=== PATIENT | male | born 1955 | race Caucasian/White ===

== ENCOUNTER → 2021-04-03 | Outpatient (CLI) | payer OTHER ==
[~2021-04-03] MED LIST: AMIT10; ATOR10; ESCI10; LEVFLO500 PO; OMEP20ER; TAMS.4ER PO
== END ==
LOC: LAB 16:10 → LAB SHORT 16:10
DX: R30.0 Dysuria (principal); Z88.0 Allergy status to penicillin
CPT/HCPCS: 87077; 87086; 87186

== ENCOUNTER 2022-09-04 08:56 | Day surgery (SDC) | payer OTHER ==
[~2022-09-04] VITALS: Ht 182.9 cm; Wt 114.6 kg
[~2022-09-04 08:56] MED LIST changes: +AMLO10 PO; +Celexa20 MG PO; +LOSARTAN POTAS100 M1 PO; +PRAVASTATIN SOD40 MG PO
== END 2022-09-04 10:51 | disposition home or self-care (01) ==
LOC: ORSCSDS 08:56
PROVIDERS: Student in an Organized Health Care Education/Training Program
PROC: 08DJ3ZZ Extraction of Right Lens, Percutaneous Approach (ICD-10-PCS; principal; 2022-09-04 10:30)
DX: H25.13 Age-related nuclear cataract, bilateral (principal); I10 Essential (primary) hypertension; G47.33 Obstructive sleep apnea (adult) (pediatric); E66.9 Obesity, unspecified; Z68.34 Body mass index [BMI] 34.0-34.9, adult; Z79.899 Other long term (current) drug therapy
CPT/HCPCS: J2001; J2250; J3010; J7040; V2632

== ENCOUNTER 2024-09-01 13:14 | Emergency (ER) | payer MEDICARE ==
[~2024-09-01] VITALS: Ht 180.3 cm; Wt 108.9 kg
[2024-09-01 13:41] VITALS: BP 154/108
[2024-09-01] MEDS ORDERED: CLIN300 PO (14:47)
[2024-09-01 15:36] LABS: Adenovirus Not Detected (NOT DETECT); Coronavirus 229E Not Detected (NOT DETECT); Coronavirus HKU1 Not Detected (NOT DETECT); Coronavirus NL63 Not Detected (NOT DETECT); Coronavirus OC43 Not Detected (NOT DETECT); Human Metapneumovirus Not Detected (NOT DETECT); Human Rhinovirus/Enterovirus Not Detected (NOT DETECT); Influenza A/2009-H1 Not Detected (NOT DETECT); Influenza A/H1 Not Detected (NOT DETECT); Influenza A/H3 Not Detected (NOT DETECT); Influenza B Not Detected (NOT DETECT); Parainfluenza Virus 1 Not Detected (NOT DETECT); SARS-Cov-2 (COVID-19), BioFire Not Detected (NOT DETECT)
[2024-09-01 15:37] LABS: Bordetella pertussis Not Detected (NOT DETECT); Chlamydophila pneumoniae Not Detected (NOT DETECT); Mycoplasma pneumoniae Not Detected (NOT DETECT); Parainfluenza Virus 2 Not Detected (NOT DETECT); Parainfluenza Virus 3 Not Detected (NOT DETECT); Parainfluenza Virus 4 Not Detected (NOT DETECT); Respiratory Syncytial Virus Not Detected (NOT DETECT)
== END 2024-09-01 15:00 | disposition home or self-care (01) ==
LOC: ER 13:14
PROVIDERS: Student in an Organized Health Care Education/Training Program
DX: I10 Essential (primary) hypertension (principal); J32.9 Chronic sinusitis, unspecified; K21.9 Gastro-esophageal reflux disease without esophagitis; Z88.0 Allergy status to penicillin; Z79.899 Other long term (current) drug therapy
CPT/HCPCS: 0202U; 93005; 93010; 99283-25

== ENCOUNTER 2025-01-04 09:15 | Day surgery (SDC) | payer OTHER ==
[~2025-01-04] VITALS: Ht 182.9 cm; Wt 107.4 kg
[~2025-01-04 09:15] MED LIST changes: +CLIN300 PO; +EPINEPhrine HCl 1 MG / ML 30ML Vial ONE; +Lidocaine 2%-Epineph 1:200000 20 ML SDV ONE; -OMEP20ER; +OMEP20ER PO
[2025-01-04] MEDS ORDERED: Tranexamic Acid 100 ML IV ONE (09:27)
[2025-01-04] MEDS ORDERED: Lactated Ringer's 1,000 ML IV ONE ×2 (10:03→11:52)
--- NOTE | 2025-01-04 10:05 | NUR ---
01/04/25 1005 JOSAFAT GASTON RAILS UP ON GURNEY, BRAKES LOCKED, CALL LIGHT IN REACH. PT DENIES NEEDS AT THIS TIME.
[2025-01-04] MEDS ORDERED: propofoL 20 ML IV ONE (10:26)
[2025-01-04] MEDS ORDERED: FentaNYL Citrate 50 MCG/ML 2 ML Injection ONE (10:27)
[2025-01-04] MEDS ORDERED: Rocuronium Bromide 10 MG/ML 5ML Injection IV ONE (10:28)
[2025-01-04] MEDS ORDERED: Dexamethasone Sod Phos 10 MG/ML 1ML VIAL ONE (11:23)
--- NOTE | 2025-01-04 11:36 | NUR ---
01/04/25 [address] BY DR[address] CORTES AT 1120
[2025-01-04] MEDS ORDERED: Ondansetron HCl 2 MG / ML 2ML Vial ONE (11:58)
[2025-01-04] MEDS ORDERED: Sugammadex Sodium 200 MG/2ML SDV (100 MG/ML) ONE (12:02)
--- NOTE | 2025-01-04 12:50 | NUR ---
01/04/25 1250 Leah Wells RECEIVED REPORT FROM RAJI FLOR. PATIENT IN RECLINER, AT BEDSIDE PATIENT JUST RETURNED FROM RESTROOM. VOIDED X1. PATIENT DROWSY BUT ORIENTED X 4. VSS. SCANT DRAINAGE ON GAUZE UNDER NOSE. PT TRANSFERRED FROM WHEELCHAIR TO RECLINER WELL.
[2025-01-04 13:48] VITALS: BP 162/90
== END 2025-01-04 13:46 | disposition home or self-care (01) ==
LOC: ORSCSDS 09:15
PROVIDERS: Otolaryngology
PROC: 09BM0ZZ Excision of Nasal Septum, Open Approach (ICD-10-PCS; principal; 2025-01-04 10:45)
PROC: 09SL0ZZ Reposition Nasal Turbinate, Open Approach (ICD-10-PCS; principal; 2025-01-04 10:45)
DX: J34.2 Deviated nasal septum (principal); J34.3 Hypertrophy of nasal turbinates; J34.89 Other specified disorders of nose and nasal sinuses; I10 Essential (primary) hypertension; K21.9 Gastro-esophageal reflux disease without esophagitis; G47.33 Obstructive sleep apnea (adult) (pediatric); Z79.899 Other long term (current) drug therapy
CPT/HCPCS: J0171; J1100; J2405; J2704; J3010; J7120

== ENCOUNTER 2025-01-06 09:05 | Inpatient (IN) | payer OTHER ==
[~2025-01-06] VITALS: Ht 182.9 cm; Wt 104.2 kg
[~2025-01-06 09:05] MED LIST changes: -EPINEPhrine HCl 1 MG / ML 30ML Vial ONE; -Lidocaine 2%-Epineph 1:200000 20 ML SDV ONE
[2025-01-06] MEDS ORDERED: Ondansetron Odt8 MG SL (09:59)
[2025-01-06] MEDS ORDERED: Hydroxyzine HCl50 MG PO (09:59)
[2025-01-06] MEDS ORDERED: ONDANSETRON ODT16 MG PO (09:59)
[2025-01-06] MEDS ORDERED: HYDROCODONE-AC1 EA19 PO (09:59)
[2025-01-06] MEDS ORDERED: SULFAMETHOXAZO1 EAC1 PO (10:00)
[2025-01-06 10:04] LABS: BASOPHILS ABSOLUTE AUTO 0.02 K/mm3 (0.00-0.23); BASOPHILS PERCENT AUTO 0 % (0-2); EOSINOPHILS PERCENT AUTO 0 % (0-6); Hematocrit 46.9 % (37.0-53.0); Hemoglobin 15.8 g/dL (13.5-17.5); IMMATURE GRAN ABSOLUTE AUTO 0.04 K/mm3 (0.00-0.10); IMMATURE GRAN PERCENT AUTO 0 % (0-1); LYMPHOCYTES ABSOLUTE AUTO 0.89 K/mm3 (0.84-5.20); LYMPHOCYTES PERCENT AUTO 8 % (21-46); MONOCYTES ABSOLUTE AUTO 0.81 K/mm3 (0.16-1.47); MONOCYTES PERCENT AUTO 7 % (4-13); Mean Corpuscular HGB 28.6 pg (26.0-34.0); Mean Corpuscular HGB Conc 33.7 g/dL (31.5-36.5); Mean Corpuscular Volume 85 fL (80-100); Mean Platelet Volume 10.6 fL (9.1-12.4); NEUTROPHILS ABSOLUTE AUTO 9.37 K/mm3 (1.96-9.15); NEUTROPHILS PERCENT AUTO 84 % (41-73); Platelet Count 261 K/mm3 (150-400); RDW Coefficient Variation 14.8 % (11.7-14.2); RDW Standard Deviation 45.3 fL (35.1-46.3); Red Blood Cell Count 5.53 M/mm3 (4.30-5.90); White Blood Cell Count 11.13 K/mm3 (4.00-11.30)
[2025-01-06 10:23] LABS: Albumin, Blood 3.9 g/dL (3.4-5.0); Bun/Creatinine Ratio 11.5 (12.0-20.0); Calcium, Blood 8.8 mg/dL (8.5-10.1); Creatinine, Blood 1.13 mg/dL (0.60-1.20); Potassium, Blood 3.2 mmol/L (3.5-5.5); Total Protein, Blood 7.9 g/dL (6.4-8.2)
[2025-01-06 10:41] LABS: Source, Urine Voided
[2025-01-06 10:52] LABS: Bilirubin, Urine Neg (Neg); Blood, Urine Neg (Neg); Glucose Qualitative, Urine Neg (Neg); Ketones, Urine Neg (Neg); Leukocyte Esterase, Urine Neg (Neg); Nitrite, Urine Neg (Neg); Protein, Urine 1+ (Neg); Specific Gravity, Urine 1.015 (1.003-1.022); Urobilinogen, Urine NORM (Normal)
[2025-01-06 10:59] LABS: Appearance, Urine Clear (Clear); Color, Urine Yellow (P-Yellow)
[2025-01-06] MEDS ORDERED: LORazepam 2 MG/ML 1ML Injection ONE (16:21)
[2025-01-06] MEDS ORDERED: LORazepam 2 MG/ML 1ML Injection IV ONE (16:25)
[2025-01-06] MEDS ORDERED: NS 1,000 ML IV SCH (17:25)
[2025-01-06] MEDS ORDERED: Ondansetron HCl 2 MG / ML 2ML Vial IV PRN (17:25)
[2025-01-06] MEDS ORDERED: LORazepam 2 MG/ML 1ML Injection IV PRN (17:30)
[2025-01-06] MEDS ORDERED: Potassium Chloride 20 MEQ TabCR PO ONE (18:00)
[2025-01-06] MEDS ORDERED: Ketorolac Tromethamine 15mg Vial IV ONE (18:00)
[2025-01-06] MEDS ORDERED: Haloperidol Lactate Inj. 5 MG/ML Injection IV PRN (18:25)
[2025-01-06] MEDS ORDERED: NS 1,000 ML IV ONE (18:36)
[2025-01-06 20:45] VITALS: BP 143/93
[2025-01-06] MEDS ORDERED: Tamsulosin HCl 0.4 MG Cap PO SCH (21:00)
[2025-01-06] MEDS ORDERED: TRAZ50 PO (21:23)
[2025-01-07] MEDS ORDERED: Ketorolac Tromethamine 15mg Vial IV PRN
[2025-01-07] MEDS ORDERED: Omeprazole 20 MG CapCR PO SCH (06:00)
[2025-01-07 06:36] VITALS: BP 162/97
--- NOTE | 2025-01-07 06:47 | NUR ---
SHIFT SUMMARY PT ARRIVAL TO UNIT APPROX 2039. ADMITTED D/T TOXIC METABOLIC ENCEPHALOPATHY WITH CONFUSION/AMS AND URINARY RETENTION. PT HAD LYNN INSERTED IN ED WHICH DRAINED 1500ML O/P. PT PLEASANT BUT VERY CONFUSED. HE IS IMPULSIVE AND FORGETFUL OF HIS LIMITATIONS. ALSO IS DELUSIONAL PER SPOUSE. PT SON IS AT BEDSIDE. CALL LIGHT WITHIN REACH.
[2025-01-07] MEDS ORDERED: Losartan Potassium 50 MG Tab PO SCH (09:00)
[2025-01-07] MEDS ORDERED: AmLODIPine Besylate 5 MG Tab PO SCH (09:00)
[2025-01-07] MEDS ORDERED: Trimethoprim/Sulfamethoxazole DS Tab PO SCH (10:48)
[2025-01-07] MEDS ORDERED: Potassium Chloride 20 MEQ TabCR PO ONE (12:20)
--- NOTE | 2025-01-07 14:39 | NUR ---
REPORT GIVEN TO ZULAY ALEGRIA. PATIENT CURRENTLY ON HIS WAY DOWN FOR AN MRI VIA [facility].
[2025-01-07 16:10] VITALS: BP 167/96
--- NOTE | 2025-01-07 17:25 | NUR ---
TOOK OVER CARE AT 1440 REPORT WAS RECIEVED BY ONIEL ALEGRIA. PT WAS ABLE TO ONLY DO PART OF HIS MRI,BUT THEN BECAME TO AGITATED AND WAS BROUGHT UP TO ROOM. PT'S IMPULSIVENESS INCREASED AND PER FAMILY PT DOES THIS WHEN HE RECIEVES ATIVAN. PT HAD FAMILY AT BEDSIDE, BUT WAS NOT ABLE TO BE CONSOLED BY THEM AND KEPT THINKING HE NEEDED TO GO OR DO SOMETHING. PT COULD BE CALMED TEMPORARILY BY THIS LITERACY CONSULTANT, BUT IT DID NOT LAST. SPOKE WITH CHARGE NURSE AND IT WAS DECIDED TO MOVE PT TO ROOM 353 FOR CLOSER SUPERVISION. PT WAS TRANSFERED TO ROOM 353 AND REPORT WAS GIVEN TO RAJI AYALA WHO WILL MONITOR CARE TILL CHANGE OF SHIFT.
[2025-01-07] MEDS ORDERED: VALSARTAN-HCTZ1 EAC7 PO (17:26)
[2025-01-07 19:08] VITALS: BP 163/96
--- NOTE | 2025-01-07 19:21 | NUR ---
assumed care of pt from 336. pt very confused and trying to get out of bed, after many trys to calm pt, dr philippe was notified and a shade was placed, pt was excepting of shade and it was explained to him why it was being placed. family notified and are at bedside. family to stay at bedside with pt through the night.
--- NOTE | 2025-01-07 22:00 | NUR ---
PT STILL AGITATED I DID OFFER AND PULL AN ALTERNATIVE ANXIETY MEDICATION TO THE ONE HE WAS GIVEN EARLIER. BUT WHEN I WENT TO ADMINISTER IT, FAMILY IN ROOM CALLED OTHER FAMILY AND ULTIMATELY THEY DID REFUSE IT. I DID WASTE THIS MEDICATION. PT IS STILL THRASHING IN BED, A&O TO ONLY SELF, PULLING ON LINES AND TUBES AT THIS TIME, NOT REDIRECTABLE.
[2025-01-08 02:59] VITALS: BP 136/99
--- NOTE | 2025-01-08 06:29 | NUR ---
SHIFT SUMMARY ADMIT 01/06/25 FOR INCREASED CONFUSION/WEAKNESS SINCE POST-OP 01/04. TOXIC METABOLIC ENCEPHALOPATHY, BPH WITH URINE RETENTION. RESUMED ON BACTRIM DS RX'D POST-OP BY ENT FOR NASAL SURGERY 01/04. ALSO RESTARTED ON FLOMAX FOR CHRONIC BPH. LYNN CATH PLACED IN ED ON 01/07. JOEY CERNA NOTES PRIOR WORSENING CONFUSION WITH NARCOTICS. FAMILY CONCERNED ATIVAN GIVEN FOR MRI CONTRIBUTED TO INCREASED CONFUSION. PT AGITATED/ANXIOUS THROUGHOUT NIGHT REQUIRING FAMILY AT BEDSIDE OR STAFF 1:1 MONITORING. PT W/FREQUENT BED-EXITING ATTEMPTS, DIFFICULT TO REDIRECT, PULLED OUT IV. IMPROVING ANXIETY/AGITATION BY AM. 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 PENDING RE-EVAL AND POSSIBLE PLACEMENT PER FAMILY.
[2025-01-08 06:52] LABS: Bun/Creatinine Ratio 14.4 (12.0-20.0); Creatinine, Blood 0.84 mg/dL (0.60-1.20); Magnesium, Blood 2.1 mg/dL (1.6-2.4); Potassium, Blood 3.2 mmol/L (3.5-5.5)
[2025-01-08 07:26] VITALS: BP 170/110
[2025-01-08] MEDS ORDERED: Potassium Chloride 20 MEQ TabCR PO ONE (07:50)
[2025-01-08] MEDS ORDERED: Aspirin 81 MG Chew PO SCH (09:00)
[2025-01-08] MEDS ORDERED: Clopidogrel Bisulfate 75 MG Tab PO SCH (09:00)
--- NOTE | 2025-01-08 10:41 | NUR ---
ASSUMED CARE OF PT PT DOING A LOT BETTER IS FOLLOWING COMMANDS FAMILY STILL AT BEDSIDE. BECAUSE PT ABLE TO FOLLOW COMMANDS I REMOVED HEIDY, ASSISTED PT TO BEDSIDE COMMODE AND THEN TO CHAIR FOR BREAKFAST. PT HAS NO C/O PAIN HAS NO DISTRESS. DR JOSEPH SAT WITH FAMILY AND EXPLAINED PROGNOSIS AND MRI EVIDENCE OF STROKE. PT TO HAVE BARIUM SWALLOW EVAL AND ECHO/ CAROTID TODAY.
[2025-01-08 14:35] VITALS: BP 122/93
[2025-01-08 19:08] VITALS: BP 150/103
[2025-01-09 03:45] VITALS: BP 145/103
--- NOTE | 2025-01-09 05:20 | NUR ---
SHIFT SUMMARY ADMIT 01/06/25 FOR INCREASED CONFUSION/WEAKNESS, TOXIC METABOLIC ENCEPHALOPATHY, BPH, URINE RETENTION. BACTRIM DS CONTINUED. DUE FOR POST-OP NARES STENTS REMOVAL 01/[address] ADVISED NO FURTHER NARCOTICS OR SEDATING MEDS. PT AGITATION/ANXIETY RESOLVED TODAY. PT COHERENT, TALKATIVE, AND NO LONGER BED-EXITING WITHOUT STAFF ASSIST. STRONG WITH AMBULATION, FWW WITH 1-PERSON STAND-BY. 22g IV LFA. A&OX4. FAMILY-REPORTED HX DEMENTIA. SPEECH ADVISED SOFT & BITE SIZE DIET, THIN LIQUIDS, MEDS WHOLE WITH PUREE. FAMILY REQUESTING SNF.
[2025-01-09] MEDS ORDERED: Pantoprazole Sodium 20 MG Tab PO SCH (06:00)
[2025-01-09 06:12] LABS: Hematocrit 45.8 % (37.0-53.0); Hemoglobin 15.7 g/dL (13.5-17.5); Mean Corpuscular HGB 28.9 pg (26.0-34.0); Mean Corpuscular HGB Conc 34.3 g/dL (31.5-36.5); Mean Corpuscular Volume 84 fL (80-100); Mean Platelet Volume 11.1 fL (9.1-12.4); Platelet Count 258 K/mm3 (150-400); RDW Coefficient Variation 14.6 % (11.7-14.2); Red Blood Cell Count 5.44 M/mm3 (4.30-5.90); White Blood Cell Count 8.06 K/mm3 (4.00-11.30)
[2025-01-09 06:46] LABS: Calcium, Blood 8.9 mg/dL (8.5-10.1); Creatinine, Blood 0.94 mg/dL (0.60-1.20); Potassium, Blood 3.1 mmol/L (3.5-5.5)
[2025-01-09 08:07] VITALS: BP 136/99
[2025-01-09] MEDS ORDERED: Potassium Chloride 20 MEQ TabCR PO ONE (08:20)
[2025-01-09] MEDS ORDERED: AMLO10 PO (12:07)
[2025-01-09] MEDS ORDERED: ASPI81CH PO (12:08)
[2025-01-09] MEDS ORDERED: CLOP75 PO (12:08)
[2025-01-09] MEDS ORDERED: TAMS.4ER PO (12:08)
[2025-01-09] MEDS ORDERED: ATOR40TA PO (12:09)
[2025-01-09] MEDS ORDERED: PANT20 PO (12:10)
[2025-01-09] MEDS ORDERED: POTA10T PO (12:10)
--- NOTE | 2025-01-09 13:22 | NUR ---
DISCHARGE SUMMARY PATIENT DISCHARGED TO [facility], TRANSPORTED VIA . DISCHARGE PACKET SENT WITH [facility] [employer] [facility], COPY OF MED REC SENT WITH . IV REMOVED WITHOUT COMPLICATION. LYNN INTACT, DRAINING BOBBY/RED TINGED URINE FREELY TO GRAVITY. NO REPORTS OF PAIN. SKIN INTACT ON DISCHARGE. A/O 3-4 BUT FORGETFUL. AWARE TO CALL [facility] SATURDAY WELL DR AWAN FOR STENT REMOVAL, THIS WAS HANDED OFF IN REPORT. REPORT CALLED TO DWAYNE AT [facility].
[2025-01-10] MEDS ORDERED: Losartan Potassium 50 MG Tab PO SCH (09:00)
== END 2025-01-09 13:09 | DRG 64 ==
LOC: ER 09:05 → MEDS 17:32
PROVIDERS: Emergency Medicine; Internal Medicine; ADMIT Internal Medicine
PROC: 0T9B70Z Drainage of Bladder with Drainage Device, Via Natural or Artificial Opening (ICD-10-PCS; principal; 2025-01-07)
DX: I63.89 Other cerebral infarction (principal); G92.8 Other toxic encephalopathy; F03.94 Unspecified dementia, unspecified severity, with anxiety; G47.33 Obstructive sleep apnea (adult) (pediatric); E78.5 Hyperlipidemia, unspecified; I10 Essential (primary) hypertension; N40.1 Benign prostatic hyperplasia with lower urinary tract symptoms; R33.8 Other retention of urine; E66.01 Morbid (severe) obesity due to excess calories; T40.605A Adverse effect of unspecified narcotics, initial encounter; R31.9 Hematuria, unspecified; E87.6 Hypokalemia; R53.1 Weakness; Z79.899 Other long term (current) drug therapy; Z89.612 Acquired absence of left leg above knee; Z98.52 Vasectomy status; Z88.0 Allergy status to penicillin; Z68.31 Body mass index [BMI] 31.0-31.9, adult; J34.2 Deviated nasal septum; J34.3 Hypertrophy of nasal turbinates; J34.89 Other specified disorders of nose and nasal sinuses; K21.9 Gastro-esophageal reflux disease without esophagitis
CPT/HCPCS: 36415; 70450; 70551; 74230; 80048; 80053; 83735; 83880; 85025; 85027; 92610; 92611; 93005; 93010; 93306; 93880; 94762; 96374; 96375; 96376; 97112; 97162; 97166; 97530; 97535; 99285-25; A9270; G0378; J0171; J1100; J1630; J1885; J2060; J2405; J2470; J2704; J3010; J7030; J7120